=== PATIENT | female | born 1955 ===

== ENCOUNTER 2025-01-20 07:26 | Day surgery (SDC) | payer MEDICARE ==
[~2025-01-20] VITALS: Ht 167.6 cm; Wt 74.6 kg
[~2025-01-20 07:26] MED LIST: Balanced Salt Epinephrine Irrigation Solution 500 mL IR SCH; LEVSOD25 PO; Moxifloxacin HCL 0.5 MG/0.1 ML 0.4MLSYR LEFTEYE SCH; Ondansetron 4 MG SoluTab MM PRN; PHENYLEPHRINE\\TROPICAMIDE\\TETRACAINE OPHTHALMIC DILATING SOLN LEFTEYE PRN; Povidone-Iodine 450 DROP/30 ML Solution LEFTEYE SCH; Povidone-Iodine 450 DROP/30 ML Solution ONE; Tetracaine HCl/Pf 0.5% Opth Soln 4 ml ONE; Triamcinolone Inj Susp 40 MG / ML 1ML Vial INJ SCH; Triamcinolone Inj Susp 40 MG / ML 1ML Vial ONE
--- NOTE | 2025-01-20 08:25 | NUR ---
01/20/25 0825 Dania Babcock TETRACAINE: 0818 PLEDGETT: 0820 0813: VALIUM 10MG PO GIVEN BY GOSIA MENA IN PREOP. ANXIETY LEVEL 5-6 PRIOR TO PO VALIUM.
[2025-01-20] MEDS ORDERED: Tetracaine HCl 0.5% Opth Soln 15 ml LEFTEYE ONE (08:46)
--- NOTE | 2025-01-20 08:49 | NUR ---
01/20/25 0849 Peri Soto N 131/74 64 97% 10L BLOW BY O2 18
== END 2025-01-20 09:14 | disposition home or self-care (01) ==
LOC: ORSCSDS 07:26
PROVIDERS: Ophthalmology
PROC: 08RK3JZ Replacement of Left Lens with Synthetic Substitute, Percutaneous Approach (ICD-10-PCS; principal; 2025-01-20 09:00)
DX: H25.812 Combined forms of age-related cataract, left eye (principal); E07.9 Disorder of thyroid, unspecified; Z79.899 Other long term (current) drug therapy
CPT/HCPCS: A9270; J2003; J3301; V2632

== ENCOUNTER 2025-01-27 07:24 | Day surgery (SDC) | payer MEDICARE ==
[~2025-01-27] VITALS: Ht 170.2 cm; Wt 74.1 kg
[~2025-01-27 07:24] MED LIST changes: -Moxifloxacin HCL 0.5 MG/0.1 ML 0.4MLSYR LEFTEYE SCH; +Moxifloxacin HCL 0.5 MG/0.1 ML 0.4MLSYR RIGHTEYE SCH; -PHENYLEPHRINE\\TROPICAMIDE\\TETRACAINE OPHTHALMIC DILATING SOLN LEFTEYE PRN; +PHENYLEPHRINE\\TROPICAMIDE\\TETRACAINE OPHTHALMIC DILATING SOLN RIGHTEYE PRN; -Povidone-Iodine 450 DROP/30 ML Solution LEFTEYE SCH; +Povidone-Iodine 450 DROP/30 ML Solution RIGHTEYE SCH
--- NOTE | 2025-01-27 08:44 | NUR ---
01/27/25 0844 Lorin Giles 0840 BP:134/70 HR:60 O2:97% RESP:16
== END 2025-01-27 09:06 | disposition home or self-care (01) ==
LOC: ORSCSDS 07:24
PROVIDERS: Ophthalmology
PROC: 08RJ3JZ Replacement of Right Lens with Synthetic Substitute, Percutaneous Approach (ICD-10-PCS; principal; 2025-01-27 09:00)
DX: H25.811 Combined forms of age-related cataract, right eye (principal); Z96.1 Presence of intraocular lens; E07.9 Disorder of thyroid, unspecified; Z79.899 Other long term (current) drug therapy
CPT/HCPCS: A9270; J3301; V2632